=== PATIENT | male | born 1955 | race Caucasian/White ===

== ENCOUNTER 2025-09-18 15:45 | Emergency (ER) | payer MEDICARE, MEDICAID ==
[~2025-09-18] VITALS: Ht 180.3 cm; Wt 84.7 kg
--- NOTE | 2025-09-18 18:10 | Physician Documentation ---
History of Present Illness ~ Chief Complaint: Groin Pain Stated Complaint: GROIN SWELLING/CONFUSION Time Seen by MD: 17:25 HPI 70-YEAR-OLD MALE BROUGHT IN BY SPOUSE FOR EVALUATION OF LEFT GROIN PAIN AND SWELLING. PATIENT HAS A HISTORY OF DEMENTIA AND REPORTED TO THAT HE IS LIKELY HAVE HAD THIS SYMPTOM OF LEFT GROIN AND INGUINAL SWELLING FOR A MONTH. HE HAS BEEN NO REPORTED FEVER, DYSURIA AND/OR HEMATURIA. PATIENT WITHOUT PRIOR HISTORY OF HERNIA OR RECENT ILLNESS OR INJURY. Medication Reconciliation Allergies: Coded Allergies: No Known Allergies (Unverified , 09/18/25) Review of Systems All Other Systems at this time: Reviewed and Negative Constitutional: Reports: see HPI Male Genitalia: Reports: see HPI Physical Exam Vital Signs: RN Vital Signs have been reviewed: Yes, Temperature: 97.3, Source: Oral, Heart Rate: 66, Respiratory Rate: 18, BP: 165/69, Pulse Oximetry: 100, Weight: 84.700 Oxygen Flow Rate: 0 General Appearance: alert, WD/WN, no apparent distress Respiratory: no respiratory distress Cardiolovascular: regular rate, rhythm Gastrointestinal: other (MILD TENDERNESS WITH FULLNESS OF THE LEFT INGUINAL AREA WITHOUT LESIONS ABRASIONS) Scrotum: normal inspection Epididymis: normal inspection Testicle: normal inspection, swelling Back: normal inspection Extremities: normal range of motion, non-tender Neurologic: oriented x4 Psychiatric: normal mood/affect (BASELINE) Progress Results/Orders Results/Orders Orders - KRIS ALMEIDA PAC Us Testic/W/Duplex (09/18/25 ) Completed Orders - KRIS ALMEIDA PAC Us Testic/W/Duplex (09/18/25 ) Vital Signs 09/18/25 09/18/25 15:55 18:24 Temp 97.3 98.1 Pulse 66 80 Resp 18 18 B/P (MAP) 165/69 122/76 Pulse Ox 100 99 O2 Flow Rate 0 Medical Decision Making Additional information obtaine: family Findings EXAMINATION HISTORY LIKELY THAT CONSISTENT WITH INGUINAL HERNIA WE WILL OBTAIN ULTRASOUND IMAGING TO CONFIRM AND TO EVALUATE SCROTUM. MILD HYDRONEPHROSIS NOTED ON ULTRASOUND IMAGING AND INGUINAL HERNIA NOTED AT PATIENT'S BEDSIDE DURING EXAM. PATIENT THE PLACED IN [place] IN INGUINAL HERNIA WAS REDUCED WITHOUT DIFFICULTY. RECOMMENDATIONS AT DISCHARGE WITH A FOLLOW UP WITH THE PRIMARY CARE PHYSICIAN FOR ELECTIVE SURGICAL EVALUATION. Urinary Diff Dx:Considerations: Include: Urolithiasis, Urinary Obstruction, Urethritis, Urinary retention Genital Diff Dx:Considerations: Include: Epididymitis, Hydrocele, Inguinal hernia (NON STRANGULATED, STRANGULATED, INCARCERATED, NON INCARCERATED), Testicular torsion Departure Disposition: HOME / SELF CARE / HOMELESS Impression: Primary Impression: Inguinal hernia Qualified Codes: K40.91 - Unilateral inguinal hernia, without obstruction or gangrene, recurrent Discharge Instructions: Hernia Additional Instructions: Please keep scheduled follow up appointment with the primary care physician. Return to the emergency department if pain returns. Ultrasound imaging today was obtained as consistent with inguinal hernia. Referrals: NO PRIMARY CARE PROVIDER (PCP) Education Educated: Patient Educated regarding: diagnosis, treatment, prognosis, need for follow up Signature Scribe Signature: . Attestation: . KRIS ALMEIDA PAC Sep 18, 2025 18:10
[2025-09-18 18:24] VITALS: BP 122/76; PULSE 80; RESP 18; TEMP 98.1; O2SAT 99
--- NOTE | 2025-09-18 19:52 | RADIOLOGY REPORT ---
EXAM: US US TESTIC/W/DUPLEX HISTORY: Suspect hernia COMPARISON: None TECHNIQUE: Multiple longitudinal and transverse sonographic images of the testicles/scrotum were obtained. Doppler was applied as indicated. FINDINGS: [RIGHT]: 5 x 1.9 x 4.2 cm. Normal echogenicity. Normal vascularity. Normal epididymis with normal vascularity. Small hydrocele. No varicocele [LEFT]: 4.3 x 1.9 x 3.3 cm. Normal echogenicity. Normal vascularity. Normal epididymis with normal vascularity. No hydrocele. No varicocele. [OTHER]: Presumed bowel containing left inguinal hernia incompletely characterized IMPRESSION: 1. No acute sonographic abnormality of the scrotum. 2. Suspected bowel containing left inguinal hernia. Consider further evaluation with dedicated CT abdomen pelvis with contrast
== END 2025-09-18 18:26 | disposition home or self-care (01) ==
LOC: ER 15:46
DX: K40.90 Unilateral inguinal hernia, without obstruction or gangrene, not specified as recurrent (principal)
CPT/HCPCS: 76870; 93976; 99284